=== PATIENT | female | born 1990 | race Caucasian/White ===

== ENCOUNTER 2017-09-19 03:18 | Emergency (ER) | payer OTHER, SELFPAY ==
[2017-09-19] MEDS ORDERED: Lorazepam 1 MG TAB ONE (03:46)
[2017-09-19 04:06] LABS: #Basophils 0.1 thou/uL (0.0-0.2); #Eosinphils 0.1 thou/uL (0.0-0.7); #Monocytes 0.4 thou/uL (0.11-0.59); #Neutrophils 2.8 thou/uL (1.40-6.50); %Basophils 1.4 % (0.0-1.0); %Eosinophils 1.3 % (0.0-10.0); %Lymphocytes 37.2 % (21.0-51.0); %Monocytes 8.1 % (0.0-10.0); Hemoglobin 14.6 g/dL (12.0-16.0); Mean Corpuscular HGB CONC 34.8 g/dL (32.0-36.0); Mean Corpuscular Hemoglobin 33.9 pg (27.0-31.0); Mean Corpuscular Volume 97.4 fl (81.0-99.0); Mean Platelet Volume 7.4 fL (7.4-10.4); Platelet Count 194 thou/uL (130-400); RBC Distribution Width 11.3 % (11.5-14.5); White Blood Cell (WBC) Count 5.5 thou/uL (4.8-10.8)
[2017-09-19 04:15] LABS: Anion Gap 14 mmol/L (10-20); BUN (Urea Nitrogen) 10 mg/dL (7.0-18.7); Calc. Creatinine Clearance 0 mL/min (70-130); Calcium 9.3 mg/dL (7.8-10.44); Carbon Dioxide 23 mmol/L (22-29); Chloride 103 mmol/L (98-107); Estimated GFR-MDRD 85; Glucose 125 mg/dL (70-105); Potassium 3.6 mmol/L (3.5-5.1); Sodium 136 mmol/L (136-145)
[2017-09-19 04:19] LABS: Pregnancy Test - Urine (BHCG) Negative (Negative); Pregu Control Background? CLEAR/WHITE (CLR/WHITE); Pregu Control Bar Appear? YES (CONTROL BAR); Specific Gravity 1.014 (1.002-1.036)
[2017-09-19 04:22] LABS: Medtox Reader # READER 1
[2017-09-19 04:23] LABS: Amphetamine Not Detected (NotDetected); Barbiturates Screen Not Detected (NotDetected); Benzodiazepine Screen Not Detected (NotDetected); Cocaine Metabolite Screen Detected (NotDetected); Medtox Control Line Valid? VALID (VALID); Methadone Not Detected (NotDetected); Methamphetamine Not Detected (NotDetected); Opiate Screen Not Detected (NotDetected); Oxycodone Screen Not Detected (NotDetected); Phencyclidine (PCP) Not Detected (NotDetected); THC/Cannabinoid Screen Not Detected (NotDetected); Tricyclic Screen Not Detected (NotDetected)
[2017-09-19 04:24] LABS: Bilirubin Negative (Negative); Blood, Urine Negative (Negative); Clarity CLEAR (Clear); Glucose, Urine (Dipstick) Negative (Negative); Leukocyte Negative (Negative); Nitrite Negative (Negative); Protein, Urine (Dipstick) Negative (Neg-Trace); Specific Gravity, Urine 1.014 (1.002-1.036); Urobilinogen 0.2 mg/dL (0.2-1.0); pH, Urine 7.5 (5.0-9.0)
--- NOTE | 2017-09-19 14:53 | EKG ---
Test Reason : Blood Pressure : / mmHG Vent. Rate : 074 BPM Atrial Rate : 074 BPM P-R Int : 146 ms QRS Dur : 078 ms QT Int : 368 ms P-R-T Axes : 051 -06 027 degrees QTc Int : 408 ms Normal sinus rhythm Normal ECG Confirmed by ARSEN Jain, ENRIKE ([id number]), newspaper editor managing LAZARO OCHOA ([id number]) on 09/19/2017 2:52:38 PM Referred By: Confirmed By:ENRIKE LEGER M.D.
== END 2017-09-19 05:12 | disposition home or self-care (01) ==
LOC: ERS 03:18
DX: F41.0 Panic disorder [episodic paroxysmal anxiety] (principal); F14.10 Cocaine abuse, uncomplicated; G47.30 Sleep apnea, unspecified
CPT/HCPCS: 80048; 80306; 81003; 81025; 84443; 85025; 93005; 96360

== ENCOUNTER 2018-09-26 13:16 | Day surgery (SDC) | payer OTHER ==
[2018-09-26 14:27] VITALS: BMI 28.8
[2018-09-26] MEDS ORDERED: Sodium Chloride 0.9% 500 ML IV SCH (15:15)
[2018-09-26 15:37] LABS: ALT (SGPT) 75 U/L (8-55); AST (SGOT) 49 U/L (5-34); Albumin 3.3 g/dL (3.5-5.0); Alkaline Phosphatase 254 U/L (40-150); Anion Gap 13 mmol/L (10-20); BUN (Urea Nitrogen) 6 mg/dL (7.0-18.7); Bilirubin, Total 0.7 mg/dL (0.2-1.2); Calc. Creatinine Clearance 161 mL/min (70-130); Calcium 9.3 mg/dL (7.8-10.44); Carbon Dioxide 23 mmol/L (22-29); Chloride 104 mmol/L (98-107); Estimated GFR-MDRD Greater than 90; Globulin 2.7 g/dL (2.4-3.5); Glucose 126 mg/dL (70-105); Potassium 3.6 mmol/L (3.5-5.1); Sodium 136 mmol/L (136-145)
--- NOTE | 2018-09-26 15:42 | HP ---
TIME OF EVALUATION: 1430 hours until 1447 hours. LOCATION: Labor and Delivery. PRINCIPAL REASON FOR EVALUATION: Biophysical profile, repeat, due to indeterminate value in Dr. Delgado's office. This is a patient of Dr. Delgado. EGA is 33 weeks and 0 days. OTHER DIAGNOSES: The patient has cholestasis of and diamniotic-dichorionic twins. HISTORY OF PRESENT ILLNESS: This patient was seen earlier by Dr. Delgado, who called me originally about her care. She was seen recently with widespread body itching and had liver function tests drawn to rule out cholestasis. At that visit, she had borderline elevated liver function tests with the AST being 51 and the ALT being 68. She had bile salt drawn at the clinic with Dr. Delgado, but the results are not yet available. She has been on Actigall for her symptomatic itching and she feels better. Earlier today, she had a biophysical profile because of the cholestasis of and twin B had a biophysical score of 4/8. Because of the indeterminate nature of that result, she was sent to Labor and Delivery for repeat biophysical profile and some IV hydration. REVIEW OF SYSTEMS: She denies nausea, vomiting, or other issues. She states that her itching is grossly better. She has good movement x2. She has no fevers or leakage of fluid. PAST MEDICAL HISTORY: Otherwise, negative. ALLERGIES: NONE. PAST SURGICAL HISTORY: She had her wisdom teeth removed. SOCIAL HISTORY: Negative. PHYSICAL EXAMINATION: VITAL SIGNS: Her blood pressure is 108/67 and her pulse is 86. heart tones are 170s and 150s. GENERAL: Clinically, she is in no acute distress. ABDOMEN: Soft and nontender. : Perineal exam shows no evidence of rupture of membranes or vaginal bleeding. Cervical exam was deferred as there is no complaint of contractions. On monitors, the heart tones are reactive x2, so both nonstress tests meet the criteria for reactivity. No contractions on TOCO. INTERVENTIONS ORDERED: 1. I have ordered a repeat biophysical profile to evaluate twin B, which was the baby with the indeterminate score. 2. I have ordered a CMP. 3. I have ordered 500 mL of normal saline for IV fluid hydration. 4. NST is done and it is reactive x2. ASSESSMENT: This is a patient at 33 weeks and 0 days, G3, P2, with two prior vaginal births, with diamniotic-dichorionic twins and suspected cholestasis of . Bile salts are pending. She is here for repeat biophysical profile. PLAN: 1. Await labs as previously discussed. 2. IV fluid hydration for conservative care. 3. Nonstress test x2 is reactive. 4. Biophysical profile is currently pending. 5. Assuming her biophysical profile scores are both reassuring, we can follow up with an outpatient care. 6. I have evaluated the patient at bedside and discussed cholestasis of , twin , and possible need for early delivery with the patient and her family. All questions were answered. There is no acute evidence of labor or acute evidence of distress at this time. The patient did receive steroids by Dr. Delgado a few days ago and she has completed two injections (one full course). We will do expectant management for now until the labs return. Job ID: [id number]
[2018-09-26] MEDS ORDERED: Sodium Chloride 0.9% 1,000 ML IV SCH (15:45)
--- NOTE | 2018-09-26 15:52 | PDOC.EVN ---
Event Note - Event Note Event Note: Repeat BPP for B was 12/05..02/06 with NST AST and ALT reviewed...47 and 7d As BPP reassuring, and BPs normal..we will send home. Continue Actagall as directed Patient to follow up with Dr Delgado as directed Bile acids pending Twin B now breech I notified Dr Delgado by [place] Text
--- NOTE | 2018-09-26 16:09 | ULT ---
LIMITED OBSTETRICAL ULTRASOUND: INDICATION: Evaluate biophysical profile of twin B only. COMPARISON: None FINDINGS: There is a twin intrauterine gestation. The twin fetus labeled fetus A is seen in a vertex presentation, right of maternal midline, with plac enta anterior in location without evidence of previa. Amniotic fluid index within the twin A gestational sac appeared within normal limits. Cardiac activity associated with twin A measuring 158 bpm. Twin B is seen left of maternal midline and has an anterior placenta without evidence of previa. The twin B is seen with its head toward the maternal left but is in predominantly a breech presentation. Cardiac activity associated with twin B is 149 bpm. MARQUIS measured 9.7 cm. Twin B receive d 2 out of 2 for tone, 2 out of 2 for breathing, 2 out of 2 for movement, and 2 out of 2 for amniotic fluid volume. The average gestational age by ultrasound is 33 weeks and 0 days with estimated due date of November 14, 2018. IMPRESSION: 1. Twin intrauterine gestation. 2. The biophysical profile for twin B is 8 out of 8. The verbal report was given by the c2 tactical analysis technician to the L&D nurse, Zaynab, at 3:27 PM. Transcribed Date/Time: 09/26/2018 4:24 PM
--- NOTE | 2018-09-27 08:03 | HP ---
She is an obstetrical patient and being observed in Labor and Delivery. HISTORY OF PRESENT ILLNESS: Ms. Escudero is a 28-year-old white female G3, P2, who is at 33 weeks 0 days gestation with the EDC of 11/14/2018 with a dichorionic diamniotic twin gestation. Her previous OB history is noted for two normal spontaneous vaginal deliveries. She has been followed with this current dichorionic diamniotic twin gestation, where she had had a normal course until the past week, where she noted increasing pruritus. She was evaluated for this for suspicion for cholestasis of . At this point, the bile acid levels are still pending and has been checked with the lab and is currently not available, but she did have liver enzymes significant for alkaline phosphatase 235, her AST was 51, and ALT 68. Platelets were 135 and the patient is normotensive. She was instituted on 300 mg b.i.d. of the Actigall and her itching has improved. She was given schedule for BPP twice a week due to cholestasis of and increased stillbirth risk. Her BPP on 09/24 was 8/8 for twin A and 8/8 for twin B. She has received betamethasone 12 mg x2 doses due to the risk of delivery due to the intrahepatic cholestasis of . Today, she reports twin A has been moving and twin B has less movement. She has not eaten much this morning. Otherwise, no contractions, loss of fluid, or vaginal bleeding. PAST MEDICAL HISTORY: Otherwise negative. PAST SURGICAL HISTORY: None. SOCIAL HISTORY: She is not a smoker. OB HISTORY: In the past in 2010, she had a full-term , male, vaginal delivery and then in 2013, full-term at 39 weeks, female, vaginal delivery. FAMILY HISTORY: Noncontributory. CURRENT MEDICATIONS: 1. Actigall 300 mg b.i.d. 2. vitamins. 3. Hydroxyzine 25 mg as needed for itching. LABORATORY DATA: OB labs significant are as follows, a blood type AB-positive. Antibody screen negative. RPR was nonreactive. Urine culture negative. Hepatitis B surface antigen nonreactive. HIV negative. GC and chlamydia negative. Rubella immune. Her 50 g was normal at 98. She did have a previous positive urine drug screen of marijuana, but repeats have been negative. Her rate of growth of the twins most recent ultrasound on 09/19 showed symmetric growth on each fetus with no discordant weights. Twin A weighed 1905 g, 4 pounds 3 ounces and twin B weighed 2095 g, 4 pounds 10 ounces. PHYSICAL EXAMINATION: VITAL SIGNS: Noted today blood pressure is 120/62. The patient's weight is 185 pounds. HEENT: Within normal limits. CHEST: Clear to auscultation. HEART: Regular rate and rhythm. S1 and S2 heart sounds. ABDOMEN: Soft and nontender. She has gravid uterus approximately 38 cm in size. Appears to be vertex-vertex today on BPP. ASSESSMENT: This is a 28-year-old white female G3, P2, at 33 weeks and 0 days with EDC of 11/14/2018. She has dichorionic diamniotic twin gestation with intrahepatic cholestasis of . She has received steroids for lung maturation recently. She is on Actigall currently 300 mg b.i.d. for the pruritus with some improvement. She had a reassuring BPP of 8/8 for twin A, but unfortunately twin B today has a reassuring BPP of 4/8. PLAN: Plan is to have the patient go to Labor and Delivery for further monitoring including nonstress test and have the patient eat to see if the caloric intake will improve the movement on twin B. I have discussed this with the hospitalist, Dr. Rajat Perez. If anesthesia reassuring, we will also repeat the BPP on twin B. If these are all reassuring, then plan for again discharge home with continued BPP twice weekly and delivery at 35 weeks. If twin B again begins to be non-reassuring, then we would plan for delivery and most likely a primary section if twin B remains non-reassuring. This has been discussed with the patient and her and also with Dr. Perez. She is en route to the hospital. Job ID: [id number]
== END 2018-09-26 16:15 | disposition home or self-care (01) ==
LOC: L&D/OP 13:16
PROVIDERS: ATTEND Obstetrics & Gynecology
DX: O36.8130 Decreased fetal movements, third trimester, not applicable or unspecified (principal); O26.613 Liver and biliary tract disorders in pregnancy, third trimester; K83.1 Obstruction of bile duct; O30.043 Twin pregnancy, dichorionic/diamniotic, third trimester; O26.893 Other specified pregnancy related conditions, third trimester; L29.9 Pruritus, unspecified; Z3A.33 33 weeks gestation of pregnancy
CPT/HCPCS: 76819; 80053; 96360; 96361; 99283

== ENCOUNTER 2018-10-15 06:00 | Inpatient (IN) | payer OTHER ==
[2018-10-15 07:08] VITALS: BMI 29.1
[2018-10-15] MEDS: Lactated Ringer's 1,000 ML IV SCH ×2 (07:42→15:18)
[2018-10-15] MEDS ORDERED: NS w/ Oxytocin 10 units 500 ML IV SCH (07:58)
[2018-10-15] MEDS ORDERED: Lidocaine 1% (PF) 30 ML VIAL SC PRN (07:58)
[2018-10-15] MEDS ORDERED: Ondansetron PF 4 MG/2 ML Vial IVP PRN ×2 (07:58→11:44)
[2018-10-15] MEDS ORDERED: Acetaminophen 500 MG TAB PO PRN (07:58)
[2018-10-15] MEDS ORDERED: Promethazine HCl 25 MG/ML VIAL IM PRN ×2 (07:58→11:44)
[2018-10-15] MEDS ORDERED: NS / Oxytocin 40 units/1000ml 1,000 ML IV PRN (07:58)
[2018-10-15 08:26] LABS: Hemoglobin 10.9 g/dL (12.0-16.0); Mean Corpuscular HGB CONC 33.5 g/dL (32.0-36.0); Mean Corpuscular Hemoglobin 29.7 pg (27.0-31.0); Mean Corpuscular Volume 88.8 fL (78.0-98.0); RBC Distribution Width 12.9 % (11.5-14.5); Red Blood Cell (RBC) Count 3.67 mill/uL (4.20-5.40); White Blood Cell (WBC) Count 5.6 thou/uL (4.8-10.8)
[2018-10-15 08:39] LABS: ALT (SGPT) 121 U/L (8-55); AST (SGOT) 87 U/L (5-34); Albumin 2.8 g/dL (3.5-5.0); Alkaline Phosphatase 393 U/L (40-150); Anion Gap 12 mmol/L (10-20); BUN (Urea Nitrogen) 10 mg/dL (7.0-18.7); Bilirubin, Total 1.3 mg/dL (0.2-1.2); Calc. Creatinine Clearance 142 mL/min (70-130); Calcium 9.2 mg/dL (7.8-10.44); Carbon Dioxide 21 mmol/L (22-29); Chloride 101 mmol/L (98-107); Estimated GFR-MDRD 87; Globulin 3.3 g/dL (2.4-3.5); Glucose 75 mg/dL (70-105); Potassium 3.9 mmol/L (3.5-5.1); Protein, Total 6.1 g/dL (6.0-8.3); Sodium 130 mmol/L (136-145)
[2018-10-15 08:41] LABS: Mean Platelet Volume 10.6 fL (7.4-10.4); Platelet Count 115 thou/uL (130-400)
[2018-10-15 08:56] LABS: HBSAg Index 0.34 S/CO (0-0.99); Hep B Surf Ag Non-Reactive S/CO (NonReactive)
[2018-10-15 09:06] LABS: Syphilis Antibody Nonreactive (Nonreactive); Syphilis Antibody Index 0.01 S/CO (<1.00 Non-Reactive)
[2018-10-15] MEDS ORDERED: Penicillin G Potassium 5 MILL.UNITS VIAL ONE (10:26)
[2018-10-15] MEDS ORDERED: Fentanyl 4 mcg/Bup 0.1% Cadd 100 ML ONE ×2 (11:01→19:04)
[2018-10-15] MEDS ORDERED: Acetaminophen 325 MG TAB PO PRN (11:44)
[2018-10-15] MEDS ORDERED: Naloxone HCl 0.4 mg/ml Vial IVP PRN ×2 (11:44)
[2018-10-15] MEDS ORDERED: Lactated Ringer's 500 ML IV PRN (11:44)
[2018-10-15] MEDS ORDERED: ePHEDrine/0.9% NaCl/PF SYRINGE 50 mg/10 ml SLOW IVP PRN (11:44)
[2018-10-15] MEDS ORDERED: diphenhydrAMINE 50 MG/ML VIAL IVP PRN (11:44)
[2018-10-15] MEDS ORDERED: Fentanyl 4 mcg/Bupivacaine 0.1% Cassette 100 ML EPIDURAL SCH (11:45)
[2018-10-15] MEDS ORDERED: Communication Order-Pharmacy FS SCH (11:45)
[2018-10-15] MEDS ORDERED: Penicillin G Potassium 2.5 MILL.UNITS in Sodium Chloride 0.9% 50 ML IVPB SCH (13:00)
[2018-10-15] MEDS ORDERED: Penicillin G 2.5 MILL.units 2.5 MILL.UNITS in Premix Bag 1 BAG IVPB SCH (15:15)
[2018-10-15] MEDS ORDERED: Oxytocin 10 UNITS/ML VIAL ONE (16:08)
[2018-10-15] MEDS ORDERED: Adacel (T-DAP) 0.5 ML SYRINGE IM ONE (16:44)
[2018-10-15] MEDS ORDERED: diphenhydrAMINE 25 MG CAP PO PRN (16:44)
[2018-10-15] MEDS ORDERED: Milk Of Magnesia 30 ML UDCUP PO PRN (16:44)
[2018-10-15] MEDS ORDERED: Lanolin Ointment 7 GM TUBE TOP PRN (16:44)
[2018-10-15] MEDS ORDERED: Bisacodyl 10 MG SUPP PR PRN (16:44)
[2018-10-15] MEDS ORDERED: Preparation H Ointment 28 GM TUBE PR PRN (16:44)
[2018-10-15] MEDS ORDERED: Misoprostol 200 MCG TAB VAG PRN (16:44)
[2018-10-15] MEDS ORDERED: Benzocaine-Menthol 82.5 ML CAN TOP PRN (16:44)
[2018-10-15] MEDS ORDERED: NS / Oxytocin 40 units/1000ml 1,000 ML IV SCH (16:45)
--- NOTE | 2018-10-15 16:49 | PDOC.OPDEL ---
OB Operative/Delivery Note Delivery Dr/Surgeon: Sandy Assist: Romina Pre-Delivery Diagnosis: medically indicated induction Procedure/Post Delivery Dx: spontaneous vaginal delivery (TWIN A-vertex- controlled TWIN B -breech--Total breech extraction) Anesthesia: epidural - Findings A Sex: female - 1 min: 9 - 5 min: 9 B Sex: male - 1 min: 8 - 5 min: 9 - Additional Findings/Plan Placenta delivered: spontaneous Repaired Obstetrical Laceration: none Estimated blood loss: 400ml Compilations/Other Findings: none Post delivery plan: routine recovery
[2018-10-15] MEDS: Docusate Calcium (SURFAK) 240 MG CAP PO SCH (20:30)
[2018-10-15] MEDS: Ibuprofen 800 MG TAB PO SCH (20:30)
[2018-10-16] MEDS: Ibuprofen 800 MG TAB PO SCH ×2 (05:18→14:17)
[2018-10-16 06:15] LABS: ALT (SGPT) 106 U/L (8-55); AST (SGOT) 79 U/L (5-34); Albumin 2.4 g/dL (3.5-5.0); Alkaline Phosphatase 335 U/L (40-150); Anion Gap 12 mmol/L (10-20); BUN (Urea Nitrogen) 8 mg/dL (7.0-18.7); Bilirubin, Total 1.1 mg/dL (0.2-1.2); Calc. Creatinine Clearance 149 mL/min (70-130); Calcium 9.3 mg/dL (7.8-10.44); Carbon Dioxide 21 mmol/L (22-29); Chloride 108 mmol/L (98-107); Estimated GFR-MDRD Greater than 90; Globulin 2.9 g/dL (2.4-3.5); Glucose 109 mg/dL (70-105); Potassium 3.9 mmol/L (3.5-5.1); Protein, Total 5.3 g/dL (6.0-8.3); Sodium 137 mmol/L (136-145)
[2018-10-16] MEDS: Ferrous Sulfate 325 MG TAB PO SCH (08:13)
[2018-10-16] MEDS: Docusate Calcium (SURFAK) 240 MG CAP PO SCH (12:01)
[2018-10-16] MEDS: Prenatal Vitamin 1 TAB PO SCH (12:01)
[2018-10-16] MEDS: traMADol HCl 50 MG TAB PO PRN (12:01)
[2018-10-16] MEDS ORDERED: Ibuprofen 800 MG TAB ONE (23:40)
[2018-10-17 08:51] VITALS: BP 117/72; TEMP 98.5
[2018-10-17] MEDS: traMADol HCl 50 MG TAB PO PRN (09:58)
[2018-10-17] MEDS: Prenatal Vitamin 1 TAB PO SCH (09:59)
[2018-10-17] MEDS: Docusate Calcium (SURFAK) 240 MG CAP PO SCH ×2 (09:59→12:13)
[2018-10-17] MEDS: Ferrous Sulfate 325 MG TAB PO SCH (09:59)
[2018-10-17] MEDS: Ibuprofen 800 MG TAB PO SCH (11:03)
== END 2018-10-17 16:05 | disposition home or self-care (01) | DRG 805 ==
LOC: L&D 06:13 → 3SW 19:36
PROVIDERS: ADMIT Obstetrics & Gynecology; ATTEND Obstetrics & Gynecology
PROC: 10907ZC Drainage of Amniotic Fluid, Therapeutic from Products of Conception, Via Natural or Artificial Opening (ICD-10-PCS; principal; 2018-10-15)
PROC: 10E0XZZ Delivery of Products of Conception, External Approach (ICD-10-PCS; 2018-10-15)
PROC: 3E0P7VZ Introduction of Hormone into Female Reproductive, Via Natural or Artificial Opening (ICD-10-PCS; 2018-10-15)
PROC: 3E033VJ Introduction of Other Hormone into Peripheral Vein, Percutaneous Approach (ICD-10-PCS; 2018-10-15)
DX: O30.043 Twin pregnancy, dichorionic/diamniotic, third trimester (principal); K83.1 Obstruction of bile duct; Z37.2 Twins, both liveborn; O26.62 Liver and biliary tract disorders in childbirth; O32.1XX2 Maternal care for breech presentation, fetus 2; Z3A.35 35 weeks gestation of pregnancy
CPT/HCPCS: 36415; 51702; 80053; 85027; 86780; 86850; 86900; 86901; 87340; 90715; J2540; J2590; J7050